=== PATIENT | female | born 1945 | race Hispanic/Latino ===

== ENCOUNTER 2017-05-24 06:20 | Day surgery (SDC) | payer BC ==
[2017-05-21 13:37] VITALS: BMI 31.6
[2017-05-24] MEDS ORDERED: Midazolam 2 MG/2 ML VIAL ONE (07:46)
[2017-05-24] MEDS ORDERED: Propofol 10 mg/ml Inj (20 ML) ONE (07:46)
[2017-05-24] MEDS ORDERED: Lactated Ringer's 1,000 ML IV ONE ×2 (08:00→10:00)
[2017-05-24] MEDS ORDERED: Clindamycin 300 mg/2 ml Inj ONE (08:03)
[2017-05-24] MEDS ORDERED: Phenylephrine 10 mg/ml Inj ONE (08:09)
[2017-05-24] MEDS: Lidocaine 2% w Epi 1:100,000 Inj IJ ONE ×2 (08:20→08:30)
[2017-05-24] MEDS ORDERED: HYDROmorphone 0.5 mg/0.5 ml ISec IVP PRN (09:05)
--- NOTE | 2017-05-24 09:10 | PCM.SURG1 ---
Surgeon's Initial Post Op Note - Surgeon's Notes Surgeon: Lizeth Ritter MD Shoe Cleaner: Tulio Aguirre PA-C Type of Anesthesia: General LMA Anesthesia Administered By: Dr. Marsh Pre-Operative Diagnosis: Left knee medial and lateral meniscal tears, chondromalacia Operative Findings: same Post-Operative Diagnosis: same Operation Performed: Left knee arthroscopy with partial medial and lateral meniscectomies, chondroplasty Specimen/Specimens Removed: none Estimated Blood Loss: EBL {In ML}: 3 Drains Used: No Drains Post-Op Condition: Fair Date of Surgery/Procedure: 05/24/17 Time of Surgery/Procedure: 09:10 ([employer]IVER checked, no recent CDS. Patient instructed on risk of dependency, does not take any medication that has interactions, and proper disposal. )
[2017-05-24] MEDS ORDERED: Oxycodone/Acetaminophen 5/325 mg Tab PO PRN (09:12)
[2017-05-24 11:11] VITALS: RESP 18
[2017-05-24 11:50] VITALS: BP 130/62; PULSE 88; TEMP 98; O2SAT 98
--- NOTE | 2017-05-24 20:44 | OP ---
PROCEDURE DATE: 05/24/2017 PREOPERATIVE DIAGNOSIS: Left knee medial and lateral meniscal tears and degenerative joint disease. POSTOPERATIVE DIAGNOSIS: Left knee medial and lateral meniscal tears and degenerative joint disease. PROCEDURE: Left knee arthroscopy with medial and lateral meniscectomy. SURGEON: Romero Ritter MD. GUEST SERVICES AGENT: Prudence Faria PA-C. Ms. Faria was present and scrubbed throughout the case and assisted in preoperative patient positioning and manipulation of the lower extremity during the surgery. TYPE OF ANESTHESIA: General. ESTIMATED BLOOD LOSS: 3 mL. COMPLICATIONS: None. INDICATION FOR PROCEDURE: This is a 71-year-old female who presented with complaints of left knee pain. Clinical examination was consistent with medial and lateral joint line tenderness, positive Jefe's, pain at the extremes of knee flexion. Radiographic and MRI examination was consistent with some degenerative joint disease as well as degenerative complex tears of both the medial and lateral menisci. After failure to *------* nonsurgical management including medication and injection, recommendation was for a left knee arthroscopy. The risks and benefits were discussed with the patient including the possibility of continued pain secondary to degenerative joint disease and informed consent was obtained. DESCRIPTION OF PROCEDURE: After surgical site was *------* verified in the preoperative holding area, the patient was taken to the operating room and placed supine on the operating room table. After administration of general anesthesia, the patient received 900 mg of clindamycin IV. A tourniquet was placed above the left thigh. Care was taken to make sure bony prominences and nerves were well padded and protected. Lateral post was placed along the proximal thigh and the left lower extremity was prepped and draped in usual sterile fashion. The bony landmarks were identified about the left knee and our portal sites were injected with 5 mL with 2% lidocaine with epi. An anterolateral arthroscopy portal was established into the knee joint. Patellofemoral articulation was evaluated. The patient did have some grade 1 to grade 2 chondromalacia of the patellofemoral articulation. The medial and lateral gutters were noted to be free of any loose bodies and pathologic plica. The patient was noted to have some inflamed synovial tissue. At this point, the arthroscope was inserted into the medial compartment and through an anteromedial portal, the medial meniscus was probed and the patient was noted to have a radial type tear of the posterior horn of the medial meniscus. The tear was extended all the way to the radial meniscocapsular junction. Using a combination of Basket forceps and a full radius shaver, meniscectomy was performed resecting the torn portion of the posterior horn completely to the capsule. The remaining portion of the meniscus appeared to be intact. The chondral surface of the medial femoral condyle was noted to have some grade 2 to grade 3 chondromalacia. Next, the intercondylar notch was evaluated. ACL was visualized, probed, and appeared to be intact. PCL was also visualized and appeared to be intact. Next, the lateral compartment was evaluated. The lateral meniscus was probed. The patient was noted to have a large complex tear of the posterior horn extending into the midbody of the meniscus. Some anterior horn fraying was also noted. Using a combination of Basket forceps and a full radius shaver, meniscectomy was performed essentially resecting the meniscus back to a stable rim. Chondral surfaces of the lateral compartment noted to have some grade 2 chondromalacia. At this point, the knee joint was irrigated with arthroscopic cannula and all instruments were removed. All portal sites were closed using interrupted 3-0 Vicryl suture and Dermabond to the skin. A sterile dressing was applied. The patient was awakened from the procedure, and taken to recovery room in stable condition. Romero Ritter MD
== END 2017-05-24 12:30 | disposition home or self-care (01) ==
LOC: C.SDS 06:20
PROVIDERS: ATTEND Orthopaedic Surgery
DX: S83.242A Other tear of medial meniscus, current injury, left knee, initial encounter (principal); S83.272A Complex tear of lateral meniscus, current injury, left knee, initial encounter; M17.12 Unilateral primary osteoarthritis, left knee; M94.262 Chondromalacia, left knee; Z87.891 Personal history of nicotine dependence; Z98.890 Other specified postprocedural states; Z90.89 Acquired absence of other organs; Z79.899 Other long term (current) drug therapy; Z88.0 Allergy status to penicillin; X58.XXXA Exposure to other specified factors, initial encounter
CPT/HCPCS: 29880; 97116; 97161; G8978; G8979; G8980; J0171; J1170; J1885; J2250; J2370; J2405; J2704; J3010; J7120